=== PATIENT | male | born 1955 | race Caucasian/White ===

== ENCOUNTER 2017-07-28 15:16 | Emergency (ER) | payer MEDICAID ==
[~2017-07-28] VITALS: Ht 162.6 cm; Wt 103.4 kg
[2017-07-28 15:39] VITALS: BP 130/83
[2017-07-28] MEDS ORDERED: LIDOCAINE 1% 500 MG/50 ML VIAL INJ SCH (16:25)
[2017-07-28] MEDS ORDERED: LIDOCAINE MPF 1% - **ER/OR** 5 ML ONE (16:28)
[2017-07-28] MEDS ORDERED: BACITRACIN OINT 500 UNITS/GM PKT TP ONE (16:45)
[2017-07-28 16:58] VITALS: BP 130/83
== END 2017-07-28 16:58 | disposition home or self-care (01) ==
LOC: MED 15:16
DX: S61.012A Laceration without foreign body of left thumb without damage to nail, initial encounter (principal); I10 Essential (primary) hypertension; W45.8XXA Other foreign body or object entering through skin, initial encounter; Y93.89 Activity, other specified; Y92.89 Other specified places as the place of occurrence of the external cause; Y99.8 Other external cause status
CPT/HCPCS: 12001; 99283; J2001